=== PATIENT | female | born 1960 | race Two or more races ===

== ENCOUNTER 2018-08-19 07:46 | Outpatient (CLI) | payer OTHER ==
[~2018-08-19 07:46] MED LIST: HYZAAR 100-12.1 EACH PO; HYZAAR 50-12.1 UDTAB; HYZAAR 50-12.1 UDTAB PO; HYZAAR 50/12.51 TAB PO; LATANOPROST2.5 ML OP; ZANTAC300 MG PO
== END 2018-08-19 08:05 | disposition home or self-care (01) ==
LOC: MAMO-SONO 07:46
DX: N64.4 Mastodynia (principal); Z12.31 Encounter for screening mammogram for malignant neoplasm of breast

== ENCOUNTER 2018-11-23 09:12 | Outpatient (CLI) | payer OTHER | END 2018-11-23 15:00 | disposition home or self-care (01) | LOC: LAB 09:12 | DX: N92.1 Excessive and frequent menstruation with irregular cycle (principal); E78.00 Pure hypercholesterolemia, unspecified; E04.2 Nontoxic multinodular goiter ==

== ENCOUNTER 2018-11-24 11:21 | Outpatient (CLI) | payer OTHER | END 2018-11-24 15:00 | disposition home or self-care (01) | LOC: LAB 11:21 | DX: N92.1 Excessive and frequent menstruation with irregular cycle (principal); E78.00 Pure hypercholesterolemia, unspecified; E04.8 Other specified nontoxic goiter ==